=== PATIENT | female | born 1995 | race Two or more races ===

== ENCOUNTER 2018-08-02 17:56 | Emergency (ER) | payer MEDICAID ==
[~2018-08-02] VITALS: Ht 162.6 cm; Wt 68.0 kg
[2018-08-02] MEDS ORDERED: PREN1TAB81 PO (18:16)
--- NOTE | 2018-08-02 18:21 | NUR ---
PT IS IN ROOM #2B. DR JACOBS EVALUATED THE PT.
--- NOTE | 2018-08-02 19:44 | NUR ---
Patient discharged to home in stable conditon. Written and verbal after care instructions given. Patient verbalizes understanding of instructions. PATIENT LEFT WITH STABLE GAIT.
[2018-08-02 19:45] VITALS: BP 121/80
== END 2018-08-02 19:45 | disposition home or self-care (01) ==
LOC: ER 17:59
DX: O26.891 Other specified pregnancy related conditions, first trimester (principal); R10.9 Unspecified abdominal pain; O21.8 Other vomiting complicating pregnancy; Z79.899 Other long term (current) drug therapy; Z3A.01 Less than 8 weeks gestation of pregnancy
CPT/HCPCS: 36415; 76856; A4663

== ENCOUNTER 2022-12-21 09:15 | Emergency (ER) | payer BC, MEDICAID ==
[~2022-12-21] VITALS: Ht 162.6 cm; Wt 77.1 kg
[~2022-12-21 09:15] MED LIST: PREN1TAB81 PO
[2022-12-21 09:22] VITALS: O2SAT 97
[2022-12-21 10:14] LABS: BASOPHILS # (AUTO) 0.1 K/UL (0.0-0.2); BASOPHILS % (AUTO) 0.8 % (0.0-2.0); EOSINOPHILS # (AUTO) 0.1 K/uL (0.0-0.7); EOSINOPHILS % (AUTO) 1.1 % (0.0-7.0); HEMATOCRIT 38.2 % (31.2-41.9); HEMOGLOBIN 12.5 g/dL (10.9-14.3); LYMPHOCYTES % (AUTO) 29.1 % (20.5-51.5); MEAN CORPUSCULAR HEMOGLOBIN 27.4 uug (24.7-32.8); MEAN CORPUSCULAR HGB CONC 33 g/dL (32.3-35.6); MEAN CORPUSCULAR VOLUME 83.4 fL (75.5-95.3); MONOCYTES # (AUTO) 0.4 K/uL (0.1-1.30); MONOCYTES % (AUTO) 5.4 % (0.0-11.0); NEUTROPHILS # (AUTO) 4.5 K/uL (1.8-8.9); NEUTROPHILS % (AUTO) 63.6 % (38.5-71.5); PLATELET COUNT (AUTO) 261 K/uL (179-408); RED BLOOD CELL COUNT(AUTO) 4.58 MIL/uL (3.63-4.92); RED CELL DISTRIBUTION WIDTH 13.7 % (12.3-17.7)
[2022-12-21 10:19] LABS: DIFFERENTIAL COMMENT 1
[2022-12-21 10:23] LABS: *URINE HCG, QUAL NEGATIVE (NEGATIVE)
[2022-12-21 10:26] LABS: CALCIUM 8.9 mg/dL (8.5-10.1); CREATININE 0.6 mg/dL (0.6-1.3); POTASSIUM 4.4 mmol/L (3.5-5.1)
[2022-12-21] MEDS ORDERED: IBUPROFEN 800 MG TABLET ONE (11:42)
[2022-12-21] MEDS ORDERED: ONDANSETRON ODT 4 MG TAB.RAPDIS ONE (11:42)
[2022-12-21] MEDS ORDERED: IBUPROFEN 800 MG TABLET PO ONE (11:45)
[2022-12-21] MEDS ORDERED: ONDANSETRON ODT 4 MG TAB.RAPDIS SL ONE (11:45)
[2022-12-21] MEDS ORDERED: IBUP-1958 PO (12:24)
[2022-12-21] MEDS ORDERED: ONDA4TAB11 PO (12:24)
[2022-12-21] MEDS ORDERED: SULF1TAB48 PO (12:24)
== END 2022-12-21 12:32 | disposition home or self-care (01) ==
LOC: ER 09:19
DX: L03.811 Cellulitis of head [any part, except face] (principal); Z79.899 Other long term (current) drug therapy
CPT/HCPCS: 36415; 70450; 84703; 85025; A4663; Q0162